=== PATIENT | male | born 1970 | race Caucasian/White ===

== ENCOUNTER 2023-09-25 09:18 | Emergency (ER) | payer OTHER, SELFPAY ==
[2023-09-25 09:24] VITALS: BP 150/99
--- NOTE | 2023-09-25 09:58 | ED.GENMED ---
History of Present Illness
General
Chief Complaint: Abdominal Symptoms
Source: patient
Exam Limitations: none
Time Seen by Provider: 09/25/23 09:50
Travel History
Have you had any contact with someone who has COVID-19?: No
Do you have any symptoms of coronavirus? Fever > 100 degrees, chills, cough, shortness of breath, sore throat, loss of taste or smell, muscle aches, or headache?: No
History of Present Illness
History of Present Illness:
See MDM
Past History
Past History
ED Past Medical History: CAD, HTN, Hypercholesterolemia and GA
ED Past Surgical History: Cardiac (Stents X3) and Other (R ear surgery)
Social History
Tobacco: Non-smoker
Alcohol: Occasional
Drug: None
Personal:
Living: with family
Employment: Employed
Phy Exam
Physical Exam
Physical Exam:
See MDM
Course
Orders/Labs/Results
Orders:
Orders
09/25/23 09:56
Ketorolac [Toradol] 30 mg IV NOW STA
Morphine Sulfate 4 mg IV NOW STA
09/25/23 09:57
CT Abd/pelvis W Iv Cont Urgent
Comment:
Reason For Exam: LLQ pain and fever
09/25/23 10:13
Complete Blood Count/With Diff Urgent
Comprehensive Metabolic Panel Urgent
Urinalysis Reflex To Culture Urgent
Date Specimen was Collected: 09/25/23
Time Specimen was Collected: 10:00
Urine Microscopic Reflex Cult Urgent
09/25/23 12:59
LevoFLOXacin [Levaquin] 500 mg PO NOW STA
MetroNIDAZOLE [Flagyl] 500 mg PO NOW STA
Abnormal Lab Results
09/25/23
10:13
Abs Immat Gran (auto) 0.1 H 10^3/uL
(0-0.05)
Absolute Neuts (auto) 7.7 H 10^3/uL
(1.4-6.5)
Absolute Lymphs (auto) 0.8 L 10^3/uL
(1.2-3.4)
Absolute Monos (auto) 1.0 H 10^3/uL
(0.1-0.6)
Immature Gran % 0.9 H %
(0-0.5)
Neutrophils % 80.4 H %
(42.2-75.2)
Lymphocytes % 7.8 L %
(20.5-51.1)
Monocytes % 10.6 H %
(1.7-9.3)
Urine Ketones Trace A
(Negative)
Ur Occult Blood Reflex Trace A
(Negative)
09/25/23 10:13
09/25/23 10:13
Vital Signs
Initial and Last Documented VS:
Initial Vital Signs
Temp Pulse Resp BP Pulse Ox
99.2 F 110 16 150/99 96
09/25/23 09:24 09/25/23 09:24 09/25/23 09:24 09/25/23 09:24 09/25/23 09:24
Last Documented Vital Signs
Temp Pulse Resp BP Pulse Ox
99.2 F 110 16 150/99 96
09/25/23 09:24 09/25/23 09:24 09/25/23 09:24 09/25/23 09:24 09/25/23 09:24
MDM/Problems Addressed
Differential Diagnosis Includes:
HPI and MDM Narrative:
53-year-old male presenting for evaluation of left lower quadrant pain and fever. Patient states it hurts to defecate. He denies diarrhea. He developed a fever over the past 24 hours which seems to be resolving. He has a history of
diverticulosis but denies diverticulitis
He denies any pain with urination
Given his history and complaint, will obtain CT to look for diverticulitis or any complications of diverticulitis
Physical exam
General: Mildly uncomfortable
HEENT: protecting airway
Neck: appears supple
CV: No evidence of cyanosis
Resp: No accessory muscle use
Abd: Non-distended. Mild left lower quadrant tenderness without rebound
Extremities: No deformities
Neuro: alert
Psych: Normal affect
Skin: Intact
Problems Addressed including Acute and Chronic Conditions affecting care:
1. Abdominal pain with fever
Acuity: acute
Prognosis: stable
Details: Given his history of diverticulosis, will obtain CT looking for evidence of diverticulitis
Updates
CT consistent with mild diverticulitis. 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 He states he had a colonoscopy 5 years ago with no polyps
Differential Diagnosis (but not limited to): Diverticulitis, kidney stone, UTI
Testing considered: Lactic acid but he is afebrile
Drug therapy (if applicable): OTC meds, please see d/c instruction regarding Rx drugs
Amount and/or Complexity of Data Reviewed
Clinical info obtained from: Patient
External data reviewed: N/A
Labs I independently reviewed (but not limited to): White blood cell count normal
Radiology: The CT scan was personally and independently reviewed. In addition, official CT report reviewed.
Pulse Ox: not hypoxic
EKG independently reviewed: N/A
Crystal Mounter: N/A
Critical Care: N/A
Risk of Complication:
Social Determinants of health: Good social support
Discussed with other providers: N/A
Escalation of Care includes Admit/Obs: After being observed in the Emergency Department, pt stable for discharge.
Occasional wrong word or 'sound a like' substitutions may have occurred due to the inherent limitations of voice recognition software. Read the chart carefully and recognize, using context, where substitutions have occurred.
*Critical Care Note
Total Time (30-74mins, 75-104mins- exclusive of procedures): Not Applicable
ED Attending Note
-
Portions of this chart may have been created with voice recognition software.� Occasional wrong word or��sound alike� substitutions may have occurred due to the inherent limitations of voice recognition software.
Discharge Plan
Departure
Patient Disposition: Home (Routine Discharge)
Date of Disposition: 09/25/23
Time of Disposition: 13:00
Patient with high blood pressure during this ER visit?: Yes
Discharge Problem:
Diverticulitis large intestine
Instructions: Diverticulitis (DC), BLOOD PRESSURE
Prescriptions:
New
metronidazole 500 mg Tablet
500 mg PO TID Qty: 21 0RF
diclofenac potassium 50 mg tablet
50 mg PO BID Qty: 20 0RF
levofloxacin 500 mg Tablet
500 mg PO DAILY Qty: 7 0RF
oxycodone 5 mg tablet
5 mg PO Q8H PRN (Reason: Pain) Qty: 14 0RF
No Action
diltiazem HCl [DILT-CD] 180 MG capsule,extended release 24hr
180 mg PO DAILY
aspirin 81 MG tablet,delayed release (DR/EC)
81 mg PO DAILY
rosuvastatin [Crestor] 40 MG tablet
20 mg PO QPM
pantoprazole 40 MG tablet,delayed release (DR/EC)
40 mg PO BID Qty: 180 3RF
famotidine 20 mg Tablet
20 mg PO DAILY
ezetimibe [Zetia] 10 mg Tablet
10 mg PO DAILY
Referrals:
Ryan Hughes CRNP [Family Provider] -
Activity Restrictions/Additional Instructions:
Please return for any worsening symptoms.
You may return at any time if you have further concerns.
Please follow up with your doctor at the first available appointment, preferably this week.
Please make an appointment to follow-up with your resaw carriage operator.
You were given a prescription for narcotics. If you require this pain medicine, please take a daily [id number] stool softener to avoid constipation.
Thank you for choosing [facility].
Interventions
Interventions:
*General Assessment Last Done: 09/25/23 10:15
ED- Fall Risk Assessment Last Done: 09/25/23 11:39
*ED COVID-19 Vaccine History Last Done: 09/25/23 09:36
UG-Hbtjgd-Jeoraktrrw Assessment Last Done: 09/25/23 11:39
[2023-09-25] MEDS: MORPHINE SULFATE 4 MG IV (10:16)
[2023-09-25] MEDS: TORADOL 30 MG IV (10:16)
[2023-09-25 10:27] LABS: % Basophils 0.2 % (0-2); % Eosinophils 0.1 % (0-6); % Immature Granulocytes 0.9 % (0-0.5); % Lymphocytes 7.8 % (20.5-51.1); % Monocytes 10.6 % (1.7-9.3); % Neutrophils 80.4 % (42.2-75.2); Absolute Immature Granulocytes 0.1 10^3/uL (0-0.05); Absolute Lymphocytes 0.8 10^3/uL (1.2-3.4); Absolute Neutrophils 7.7 10^3/uL (1.4-6.5); Hematocrit 41.2 % (39.0-52.0); Hemoglobin 14.9 g/dL (13.0-18.0); Mean Corp Hgb Conc. 36.2 g/dL (33.0-37.0); Mean Corpuscular Hgb 29.3 pg (27.0-31.0); Mean Corpuscular Volume 81.1 fL (80.0-94.0); Mean Platelet Volume 10.2 fL (7.4-10.4); Nucleated Red Blood Cells % 0 % (-); Platelet Count 143 10^3/uL (130-400); Red Blood Cell Count 5.08 10^6/uL (4.70-6.10); Red Cell Dist. Width 12.9 % (11.5-14.5); White Blood Cell Count 9.6 10^3/uL (4.8-10.8)
[2023-09-25 10:30] LABS: Urine Albumin Negative (Neg - Trace); Urine Bilirubin Negative (Negative); Urine Character Clear (Clear); Urine Color Yellow; Urine Glucose Negative (Negative); Urine Ketone Trace (Negative); Urine Leukocyte Negative (Negative); Urine Nitrite Negative (Negative); Urine Occult Blood Trace (Negative); Urine Urobilinogen Negative (Neg - 1+)
[2023-09-25 11:15] LABS: ALT (SGPT) 28 U/L (0-50); AST (SGOT) 28 U/L (17-59); Albumin 4.3 g/dl (3.5-5.0); Alkaline Phosphatase 48 U/L (38-126); Blood Urea Nitrogen 14 mg/dl (9-20); Carbon Dioxide 24 mmol/L (22-30); Chloride 104 mmol/L (98-107); Glucose 93 mg/dl (70-99); Potassium 3.7 mmol/L (3.5-5.1); Sodium 136 mmol/L (135-145); Total Bilirubin 1.2 mg/dl (0.2-1.3); Total Protein 6.6 g/dl (6.3-8.2); eGFR > 60.00
[2023-09-25 11:30] LABS: Urine Amorphous Seen; Urine Mucus Few; Urine Squamous Cell 0-2 /LPF (Few)
[2023-09-25 11:31] LABS: Urine Red Blood Cell 0-2 /HPF (0-2); Urine White Cell 0-2 /HPF (0-5)
[2023-09-25] MEDS: FLAGYL 500 MG PO (13:21)
[2023-09-25] MEDS: LEVAQUIN 500 MG PO (13:21)
[2023-09-25 13:22] VITALS: BP 134/82
== END 2023-09-25 13:35 | disposition home or self-care (01) ==
LOC: EMR 09:18
PROVIDERS: EMERGENCY PHYSICIAN Student in an Organized Health Care Education/Training Program; FAMILY PHYSICIAN Nurse Practitioner Family
DX: K57.32 Diverticulitis of large intestine without perforation or abscess without bleeding (principal); I10 Essential (primary) hypertension
CPT/HCPCS: 99284; 96374; 96375; 74177; 80053; 81003; 81015; 85025; Q9967

== ENCOUNTER → 2024-02-21 11:23 | Outpatient (REF) | payer OTHER, SELFPAY | LOC: HWRAD 11:23 | PROVIDERS: ATTENDING PHYSICIAN Nurse Practitioner Family | DX: M79.671 Pain in right foot (principal) | CPT/HCPCS: 73630 ==

== ENCOUNTER → 2024-02-23 13:21 | Outpatient (REF) | payer OTHER, SELFPAY | LOC: RAD 13:21 | PROVIDERS: ATTENDING PHYSICIAN Nurse Practitioner Family | DX: R60.0 Localized edema (principal); M79.89 Other specified soft tissue disorders | CPT/HCPCS: 93971 ==

== ENCOUNTER 2024-05-27 18:38 | Emergency (ER) | payer OTHER, SELFPAY ==
[2024-05-27 18:40] VITALS: BP 175/105
[2024-05-27 18:57] VITALS: BP 153/119
[2024-05-27 19:00] VITALS: BP 154/112
[2024-05-27 19:05] VITALS: BP 133/90
--- NOTE | 2024-05-27 19:08 | ED.GENMED ---
History of Present Illness
General
Chief Complaint: Cardiac Symptoms
Source: patient
Exam Limitations: none
Time Seen by Provider: 05/27/24 18:56
Nursing documentation reviewed up to this point in time: agreed with
History of Present Illness
History of Present Illness:
54-year-old male with a past medical history of hypertension, hyperlipidemia, CAD status post stent who presents to the emergency room for evaluation of palpitations. Patient reports onset of symptoms about 90 minutes prior to arrival and they have
been constant and are actually improving since then. He reports that he had just finished a rather vigorous workout on a stair climber. When he finished his workout he felt palpitations and heart racing and checked his heart rate and it was
elevated to the 150s. He says that usually when this happens his symptoms will go away when he lays down for a few minutes. He says he laid down for 10 minutes and symptoms did not resolve. He then took a dose of diltiazem 30 mg and after about
15 to 20 minutes he noticed no significant improvement and so he took a second dose of diltiazem 30 mg (total of 60 mg p.o. diltiazem taken between 5:45-6 PM). After another 10 to 15 minutes symptoms did not seem to be improving and so he decided
to come to the emergency room however since arrival symptoms have significantly improved. In triage his heart rate was 150, EKG showed heart rate 133 and on the time of my assessment his heart rate is 100. On my assessment he says he no longer has
any palpitations. He says he did not have and has not had any chest pain. Denies shortness of breath. Denies any dizziness or syncope. He denies any other complaints. He says this has happened to him many times in the past and he was told that
he has sinus tachycardia and was prescribed diltiazem to take as needed during the episodes. He follows with Dr. Chino for cardiology.
Past History
Past History
ED Past Medical History: CAD, HTN, Hypercholesterolemia and [place]
ED Past Surgical History: Cardiac (Stents X3) and Other (R ear surgery)
Social History
Tobacco: Non-smoker
Alcohol: Occasional
Drug: None
Personal:
Living: with family
Employment: Employed
Review of Systems
Review of Systems
All Other Systems: ROS reviewed and negative except as documented in HPI and ROS
Respiratory: Denies trouble breathing
Cardiac: Reports palpitations; Denies chest pain, diaphoresis or syncope
ABD/GI: Denies abdominal pain
: Denies flank pain
Musculoskeletal: Denies neck pain or back pain
Neurological: Denies dizzy or headache
Phy Exam
Physical Exam
Physical Exam:
General: Awake, alert, oriented x3; no acute distress
Head: Normocephalic, atraumatic
Eyes: Conjunctiva normal
Throat: Airway intact, handling secretions
Neck: Trachea midline, no JVD
Lungs: Clear to auscultation bilaterally, no wheezing, rales, rhonchi
Heart: Tachycardia with regular rhythm, no murmurs, gallops, or rubs
Abd: Soft, non distended, nontender
Neuro: No gross deficit
Skin: no rash
Extremities: No edema in extremities, equal pulses in all extremities
Scores
Heart Failure Risk
Heart Failure Risk Score: Not Applicable
Heart Score for Chest Pain Patients
STEMI patient?: Not applicable
Withdrawal Assessment of Alcohol
Withdrawal Assessment Completed?: Not applicable
Course
Orders/Labs/Results
Orders:
Orders
05/27/24 18:40
Electrocardiogram (*1) Urgent
Reason for Study: Chest Pain
EKG- Treatment ONCE
05/27/24 18:42
Electrocardiogram (*1) Urgent
Reason for Study: Palpitations
EKG- Treatment ONCE
05/27/24 19:10
Encourage PO Hydration-Treatme ONCE
05/27/24 19:11
0.9% Sodium Chloride 1000 ml [Nss] 1,000 ml IV BOLUS
05/27/24 19:30
CPK [Creatine Phosphokinase] Urgent
Complete Blood Count/With Diff Urgent
Comprehensive Metabolic Panel Urgent
Magnesium Urgent
Troponin I Urgent
05/27/24 21:31
Troponin I Urgent
Abnormal Lab Results
05/27/24 05/27/24
19:30 21:31
MCV 79.4 L fL
(80.0-94.0)
Abs Immat Gran (auto) 0.1 H 10^3/uL
(0-0.05)
Absolute Monos (auto) 0.7 H 10^3/uL
(0.1-0.6)
Immature Gran % 0.7 H %
(0-0.5)
Lymphocytes % 15.5 L %
(20.5-51.1)
Carbon Dioxide 21 L mmol/L
(22-30)
Glucose 114 H mg/dl
(70-99)
Creatine Kinase 303 H U/L
(55-170)
Troponin I 0.048 H* D ng/ml
05/27/24 19:30
05/27/24 19:30
Vital Signs
Pulse: 88
Initial and Last Documented VS:
Initial Vital Signs
Temp Pulse Resp BP Pulse Ox
36.5 C 156 16 175/105 99
05/27/24 18:40 05/27/24 18:40 05/27/24 18:40 05/27/24 18:40 05/27/24 18:40
Last Documented Vital Signs
Temp Pulse Resp BP Pulse Ox
36.5 C 88 15 132/90 96
05/27/24 18:40 05/27/24 22:08 05/27/24 21:30 05/27/24 21:00 05/27/24 21:30
MDM/Problems Addressed
Differential Diagnosis Includes:
SVT, atrial fibs/flutter, sinus tachycardia, atrial tachycardia
MDM/Problems Addressed:
54-year-old male presents for evaluation of palpitations and elevated heart rate onset after vigorous workout; has had similar symptoms many times in the past. Took 60 mg of p.o. diltiazem prior to arrival and symptoms now improving. Triage vitals
significant for hypertension and tachycardia�these have essentially normalized by my assessment, heart rate 100 on my assessment. His triage EKG shows narrow complex tachycardia which is regular, suspect likely sinus tachycardia; repeat EKG at
lower rate confirms sinus tach. Will check labs including a CBC and a CMP, magnesium level, CPK and troponin. Provide fluids. Monitor on telemetry reassess after the above.
Labs reviewed and unremarkable�marginal CPK elevation in the setting of recent workout. Patient's heart rate is in the 80s, asymptomatic. Continue to monitor.
Repeat troponin marginally uptrending likely related to marked tachycardia also slight CPK elevation. Denies chest pain at any point in time. Had essentially clean cath a year ago. Do not suspect ACS. I had a long discussion with the patient. I
explained that he should have a repeat troponin after 3 hours to ensure that it peaks. He is adamant that he does not wish to stay for third troponin. He has been here for 4 hours and has been essentially asymptomatic for the entirety. He never
had any chest pain. Will discharge in keeping with his wishes but I did urge him to return immediately if he feels any symptoms such as palpitations, shortness of breath, chest pain, dizziness. He assured me that he would.
Acute Exacerbation and/or Progression of Chronic Illness:
Acutely hypertensive improved without intervention continue to monitor but no emergent antihypertensive indicated at present
Acute Exacerbation and/or Progression of Chronic Illness: HTN
*Pulse Oximetry
Patient hypoxic: no
*EKG
Interpreted by ED Provider?: Yes
Heart Rate: 133
Rate: tachycardiac
Rhythm: sinus
Apex: normal axis
Interval: normal interval
QRS Pattern: normal QRS
Ischemia: no ischemia
*Critical Care Note
Total Time (30-74mins, 75-104mins- exclusive of procedures): Not Applicable
Data Reviewed
Review of Other/Old Records Reveals: Labs, Records and Testing
Source: patient and records
ED Attending Note
-
Portions of this chart may have been created with voice recognition software.� Occasional wrong word or��sound alike� substitutions may have occurred due to the inherent limitations of voice recognition software.
Discharge Plan
Departure
Patient Disposition: Home (Routine Discharge)
Date of Disposition: 05/27/24
Time of Disposition: 22:36
Patient with high blood pressure during this ER visit?: Yes
Discharge Problem:
Tachycardia
Instructions: Tachycardia
Prescriptions:
No Action
diltiazem HCl [DILT-CD] 180 MG capsule,extended release 24hr
180 mg PO DAILY
aspirin 81 MG tablet,delayed release (DR/EC)
81 mg PO DAILY
rosuvastatin [Crestor] 40 MG tablet
20 mg PO QPM
pantoprazole 40 MG tablet,delayed release (DR/EC)
40 mg PO BID Qty: 180 3RF
famotidine 20 mg Tablet
20 mg PO DAILY
ezetimibe [Zetia] 10 mg Tablet
10 mg PO DAILY
metronidazole 500 mg Tablet
500 mg PO TID Qty: 21 0RF
diclofenac potassium 50 mg tablet
50 mg PO BID Qty: 20 0RF
levofloxacin 500 mg Tablet
500 mg PO DAILY Qty: 7 0RF
oxycodone 5 mg tablet
5 mg PO Q8H PRN (Reason: Pain) Qty: 14 0RF
Referrals:
Rosas Chino MD [Active] - Call in 1-3 days for appt
Ryan Hughes CRNP [Family Provider] -
Activity Restrictions/Additional Instructions:
Thank you for visiting the Emergency Department at [facility].
1. Please schedule a follow up appointment as directed. Call first thing tomorrow morning to make an appointment.
2. If indicated, please take your medications as instructed and indicated on discharge paperwork.
3. If any of your symptoms do not improve, or persist, or become more severe within 6-12 hours, please return to the emergency department for further care.
4. Please return to the emergency department if you develop a headache, neck pain/stiffness, fever greater than 100.4F, chest pain, shortness of breath, persistent nausea, vomiting, slurred speech, difficulty walking, numbness/tingling, weakness,
signs of infection or any other symptoms that are worrisome to you.
Please call [phone] if you have any questions.
Interventions
Interventions:
*Risk Screen - Suicide Last Done: 05/27/24 18:42
*Neglect/Abuse Screening Last Done: 05/27/24 18:42
ED- Fall Risk Assessment Last Done: 05/27/24 20:08
*ED COVID-19 Vaccine History Last Done: 05/27/24 18:42
ED- Pulmonary Assessment Last Done: 05/27/24 20:08
ED- Cardiac Assessment Last Done: 05/27/24 20:08
Discharge Date and Time
Print Language: NEPALI
[2024-05-27] MEDS: NSS 1000 IV (19:30)
[2024-05-27 19:41] LABS: % Basophils 0.5 % (0-2); % Eosinophils 2.1 % (0-6); % Immature Granulocytes 0.7 % (0-0.5); % Lymphocytes 15.5 % (20.5-51.1); % Monocytes 7.8 % (1.7-9.3); % Neutrophils 73.4 % (42.2-75.2); Absolute Eosinophils 0.2 10^3/uL (0-0.7); Absolute Immature Granulocytes 0.1 10^3/uL (0-0.05); Absolute Lymphocytes 1.3 10^3/uL (1.2-3.4); Absolute Monocytes 0.7 10^3/uL (0.1-0.6); Absolute Neutrophils 6.2 10^3/uL (1.4-6.5); Hematocrit 42.7 % (39.0-52.0); Hemoglobin 15.5 g/dL (13.0-18.0); Mean Corp Hgb Conc. 36.3 g/dL (33.0-37.0); Mean Corpuscular Hgb 28.8 pg (27.0-31.0); Mean Corpuscular Volume 79.4 fL (80.0-94.0); Mean Platelet Volume 9.6 fL (7.4-10.4); Nucleated Red Blood Cells % 0 % (-); Platelet Count 173 10^3/uL (130-400); Red Blood Cell Count 5.38 10^6/uL (4.70-6.10); White Blood Cell Count 8.5 10^3/uL (4.8-10.8)
[2024-05-27 19:58] LABS: ALT (SGPT) 34 U/L (0-50); AST (SGOT) 34 U/L (17-59); Albumin 4.9 g/dl (3.5-5.0); Alkaline Phosphatase 75 U/L (38-126); Blood Urea Nitrogen 13 mg/dl (9-20); Carbon Dioxide 21 mmol/L (22-30); Chloride 105 mmol/L (98-107); Glucose 114 mg/dl (70-99); Magnesium 1.9 mg/dl (1.6-2.3); Sodium 145 mmol/L (135-145); Total Bilirubin 0.3 mg/dl (0.2-1.3); Total Protein 7.3 g/dl (6.3-8.2); eGFR > 60.00
[2024-05-27 19:59] LABS: Creatine Phosphokinase 303 U/L (55-170)
[2024-05-27 20:00] VITALS: BP 133/83
[2024-05-27 20:07] LABS: Troponin I 0.024 ng/ml
[2024-05-27 21:00] VITALS: BP 132/90
--- NOTE | 2024-05-27 21:00 | EDRN ---
Updated patient on plan for repeat troponin level at 2130, provided with a lunchbox as well
[2024-05-27 22:09] LABS: Troponin I 0.048 ng/ml
--- NOTE | 2024-05-27 22:33 | EDRN ---
Dr. Montoya at bedside going over results and plan
== END 2024-05-27 22:43 | disposition home or self-care (01) ==
LOC: EMR 18:38
PROVIDERS: EMERGENCY PHYSICIAN Emergency Medicine; FAMILY PHYSICIAN Nurse Practitioner Family
DX: I47.10 Supraventricular tachycardia, unspecified (principal); I10 Essential (primary) hypertension; E78.00 Pure hypercholesterolemia, unspecified; I25.10 Atherosclerotic heart disease of native coronary artery without angina pectoris; Z95.5 Presence of coronary angioplasty implant and graft
CPT/HCPCS: 96360; 99284; 80053; 82550; 83735; 84484; 85025; 93005

== ENCOUNTER → 2024-06-27 11:20 | Outpatient (REF) | payer OTHER, SELFPAY | LOC: HWRCS 11:20 | PROVIDERS: ATTENDING PHYSICIAN Internal Medicine Interventional Cardiology; FAMILY PHYSICIAN Nurse Practitioner Family | DX: I10 Essential (primary) hypertension (principal); Z95.5 Presence of coronary angioplasty implant and graft; R00.2 Palpitations; I25.10 Atherosclerotic heart disease of native coronary artery without angina pectoris | CPT/HCPCS: 93306 ==

== ENCOUNTER → 2025-02-24 19:22 | Outpatient (REF) | payer OTHER, SELFPAY | LOC: MRI 19:22 | PROVIDERS: ATTENDING PHYSICIAN Podiatrist Foot & Ankle Surgery; FAMILY PHYSICIAN Nurse Practitioner Family | DX: M77.41 Metatarsalgia, right foot (principal); M71.571 Other bursitis, not elsewhere classified, right ankle and foot | CPT/HCPCS: 73720; A9575 ==

== ENCOUNTER 2025-05-01 03:52 | Emergency (ER) | payer OTHER, SELFPAY ==
[2025-05-01 03:57] VITALS: BP 164/84
[2025-05-01 04:04] VITALS: BMI 32.9
[2025-05-01 04:18] LABS: Hematocrit 45.7 % (39.0-52.0); Hemoglobin 15.8 g/dL (13.0-18.0); Mean Corp Hgb Conc. 34.6 g/dL (33.0-37.0); Mean Corpuscular Volume 83.7 fL (80.0-94.0); Nucleated Red Blood Cells % 0 % (-); Platelet Count 177 10^3/uL (130-400); Red Cell Dist. Width 12.8 % (11.5-14.5)
[2025-05-01 04:47] LABS: Blood Urea Nitrogen 15 mg/dl (9-20); Calcium 9.5 mg/dl (8.4-10.2); Carbon Dioxide 25 mmol/L (22-30); Chloride 106 mmol/L (98-107); Estimated Creatinine Clearance 97 ml/min; Glucose 112 mg/dl (70-99); Sodium 142 mmol/L (135-145); eGFR > 60.00
[2025-05-01 04:53] LABS: Troponin I < 0.012 ng/ml
[2025-05-01] MEDS: MAALOX 50 PO (05:32)
[2025-05-01] MEDS: CARAFATE SUSPENSION 1 GM PO (05:57)
[2025-05-01 06:00] VITALS: BP 133/85
--- NOTE | 2025-05-01 06:23 | ED.GENMED ---
History of Present Illness
General
Chief Complaint: Chest Pain
Source: patient, spouse and previous hospital records (Hospitalization February 2023 for evaluation of exertional chest pain. Cardiac catheterization at that time showed patent stents. No stenosis. Recommend medical management.)
Exam Limitations: none
Time Seen by Provider: 05/01/25 05:04
Nursing documentation reviewed up to this point in time: agreed with
History of Present Illness
History of Present Illness:
This is a 55-year-old gentleman with significant history of CAD including CA in 2006 and subsequent stenting procedures. He presents with chest pain and severe acid reflux. He reports waking up with a sensation of acid rising up to the back of his
throat and nose causing intense burning and coughing which he describes as a 'bullet shot right up, right up almost into my nose' he took multiple antacids to alleviate the symptoms. Mild improvement in chest burning after an acids. This episode
was characterized by a burning sensation in the chest and throat. The patient has a long history of acid reflux and takes 40 mg of Protonix twice daily along with 40 mg of Pepcid at nighttime.
He recently began Zepbound, initial dose 4 days ago which he suspects aggravated his acid reflux noting 'my stomach felt horrible, acid reflux I had 2 nights in a row horribly'
Patient states he generally sleeps Semi-Marquez's, he has an adjustable bed and admits that elevating the head of his bed generally improves his GERD symptoms. As his acid reflux seemed to improve the previous night, patient decided to lower the
head of his bed tonight which she also suspects aggravated his acid reflux.
Current chest pain feels quite different from previous episodes of angina.
Moderate coughing initially and intermittent coughing persist but no choking or gagging, no shortness of breath.
Past History
Past History
ED Past Medical History: CAD, GERD, HTN, Hypercholesterolemia and CA
ED Past Surgical History: Cardiac (Stents X3) and Other (R ear surgery)
Social History
Tobacco: Non-smoker
Alcohol: Occasional
Drug: None
Personal:
Living: with family
Employment: Employed
Family History
Family History: Other (Noncontributory)
Phy Exam
Physical Exam
Physical Exam:
GENERAL: 55-year-old gentleman appears his stated age, awake and alert, pleasant, appears in no acute distress. is accompanying.
EYE: anicteric
NECK: Supple, nontender, no meningismus, no significant adenopathy.
ENT: posterior pharynx is clear, oral mucosa is moist. No rhinorrhea.
CARDIAC: Regular rate and rhythm. no murmur.
LUNGS: Clear breath sounds bilaterally, no acute respiratory distress, no wheezes/rales/rhonchi
ABDOMEN: Soft, nondistended, without focal tenderness, no r/g, no cvat. normoactive BS.
NEUROLOGICAL: Alert and oriented x3, no focal neuro deficits.
SKIN: Warm and dry, normal color, skin intact. No rash.
MUSCULOSKELETAL: No C/C/E. peripheral pulses are full and equal b/l. No palpable tenderness.
PSYCH: Normal and appropriate interaction.
Scores
Heart Score for Chest Pain Patients
STEMI patient?: No
History: Slightly or Non-Suspicious
ECG: Normal
Age: >45 - <65 years
Risk Factors: >/= 3 Risk Factors or History of CAD
Troponin: </= Normal Limit
Heart Score for Chest Pain Patients: 3
Heart Score Risk: 2.5% MACE over next 6 weeks
Course
Orders/Labs/Results
Orders:
Orders
05/01/25 03:55
Electrocardiogram (*1) Urgent
Reason for Study: Chest Pain
Chest [CR Chest - 2 Views ] Urgent
Comment:
Reason For Exam: chest pain
05/01/25 03:56
EKG- Treatment ONCE
05/01/25 04:03
Basic Metabolic Panel Urgent
Comment: NO K
Complete Blood Count/With Diff Urgent
Troponin I Urgent
05/01/25 05:22
Mag Hydrox/Al Hydrox/Simeth [Maalox] 30 ml Phenobarb/Hyoscy/Atropine/Scop [] 10 ml Viscous Lidocaine 2% [Xylocaine Viscous Cup] 10 ml PO NOW
05/01/25 05:23
EKG- Treatment ONCE
05/01/25 05:29
Mag Hydrox/Al Hydrox/Simeth [Maalox] 30 ml .ROUTE .STK-MED ONE
Phenobarb/Hyoscy/Atropine/Scop [] 10 ml .ROUTE .STK-MED ONE
Viscous Lidocaine 2% [Xylocaine Viscous Cup] 15 ml .ROUTE .STK-MED ONE
05/01/25 05:49
Troponin I Urgent
05/01/25 05:50
Sucralfate Suspension [Carafate Suspension] 1 gm PO NOW STA
05/01/25 06:00
Electrocardiogram (*1) Urgent
Reason for Study: Chest Pain
Abnormal Lab Results
05/01/25
04:03
Absolute Monos (auto) 0.8 H 10^3/uL
(0.1-0.6)
Monocytes % 10.3 H %
(1.7-9.3)
Glucose 112 H mg/dl
(70-99)
05/01/25 04:03
05/01/25 04:03
Vital Signs
Initial and Last Documented VS:
Initial Vital Signs
Pulse Resp BP Pulse Ox
90 24 164/84 93
05/01/25 03:57 05/01/25 03:57 05/01/25 03:57 05/01/25 03:57
Last Documented Vital Signs
Pulse Resp BP Pulse Ox
88 16 164/84 93
05/01/25 05:30 05/01/25 05:30 05/01/25 03:57 10/09/25 06:35
MDM/Problems Addressed
Differential Diagnosis Includes:
Differential diagnosis includes, in no particular order and is not limited to:
GERD
Esophagitis
Peptic ulcer disease
Gastric ulcer
Bile reflux
CAD related chest pain
Medication induced gastritis
Hiatal hernia
Aspiration
MDM/Problems Addressed:
Acute chest pain after episode of GERD
Acute cough
Thus far EKG is unremarkable and unchanged from previous.
Labs are unremarkable including negative troponin.
Chest x-ray shows clear lung steen, normal heart size. Normal mediastinum.
I do suspect patient suffered acute esophagitis related to acute episode of GERD which could certainly be aggravated by recent initiation of Zepbound along with supine positioning while sleeping.
Patient has had no respiratory distress, lungs are clear to auscultation and chest x-ray within normal limits. Nothing to suggest significant aspiration episode.
Will plan to repeat troponin and EKG.
Will trial a GI cocktail followed by Carafate.
If troponin remains negative and patient feeling improved with GI medications we will plan to discharge to home with recommendations to discontinue Zepbound.
Also recommend he resume Semi-Marquez's positioning at bedtime.
Continue current antireflux medications.
Prompt follow-up with PCP as well as associate director data & analytics.
Chronic conditions affecting care: HTN, CAD and Other (GERD)
Acute Exacerbation and/or Progression of Chronic Illness:
GERD
*Radiology
Radiology exam reviewed: preliminary read by ED provider (Chest x-ray is unremarkable. Clear lung steen. Normal heart size.)
*Pulse Oximetry
SaO2: 93
Oxygen Mode of Delivery: Room air
Patient hypoxic: no
*EKG
Interpreted by ED Provider?: Yes
Interpretation: normal
Comparison EKG: no changes
Rate: normal
Rhythm: sinus
[place]: normal axis
Interval: normal interval
QRS Pattern: normal QRS
Ischemia: no ischemia
*Occupational Therapy Aide Interpretation
Rate: normal
Interpretation: normal
Rhythm: sinus
*Critical Care Note
Total Time (30-74mins, 75-104mins- exclusive of procedures): Not Applicable
Update Note
Update Note:
06:50
Repeat troponin remains flat. EKG is unchanged.
Patient reports relief of chest discomfort/burning after GI cocktail and Carafate. He is requesting a prescription for Carafate which he has had in the past for his acid reflux exacerbations.
Recommend he continue his twice daily Protonix and Pepcid. Hold off on any further doses of Zepbound.
Elevate head of bed when sleeping.
Prompt follow-up with associate director data & analytics for recheck.
ED Attending Note
-
Portions of this chart may have been created with voice recognition software.� Occasional wrong word or��sound alike� substitutions may have occurred due to the inherent limitations of voice recognition software.
Discharge Plan
Departure
Patient Disposition: Home (Routine Discharge)
Date of Disposition: 05/01/25
Time of Disposition: 06:49
Patient with high blood pressure during this ER visit?: No
Condition: Good
Discharge Problem:
Acute GERD with esophagitis
Instructions: Acid Reflux and GERD in Adults (DC)
Prescriptions:
New
sucralfate [Carafate] 100 mg/mL suspension
10 ml PO QID PRN (Reason: acid reflux) Qty: 400 1RF
No Action
diltiazem HCl [DILT-CD] 180 MG capsule,extended release 24hr
180 mg PO DAILY
aspirin 81 MG tablet,delayed release (DR/EC)
81 mg PO DAILY
rosuvastatin [Crestor] 40 MG tablet
20 mg PO QPM
pantoprazole 40 MG tablet,delayed release (DR/EC)
40 mg PO BID Qty: 180 3RF
famotidine 20 mg Tablet
20 mg PO DAILY
ezetimibe [Zetia] 10 mg Tablet
10 mg PO DAILY
metronidazole 500 mg Tablet
500 mg PO TID Qty: 21 0RF
diclofenac potassium 50 mg tablet
50 mg PO BID Qty: 20 0RF
levofloxacin 500 mg Tablet
500 mg PO DAILY Qty: 7 0RF
oxycodone 5 mg tablet
5 mg PO Q8H PRN (Reason: Pain) Qty: 14 0RF
Referrals:
Ryan Hughes CRNP [Family Provider, Family Practice] - Call in 1-3 days for appt
Interventions
Interventions:
*Risk Screen - Suicide Last Done: 05/01/25 03:57
*General Assessment Last Done: 05/01/25 04:05
*Neglect/Abuse Screening Last Done: 05/01/25 03:57
*ED- Fall Risk Assessment Last Done: 05/01/25 04:05
*ED COVID-19 Vaccine History Last Done: 05/01/25 04:05
*ED Influenza Vaccine History Last Done: 05/01/25 04:05
ED- Cardiac Assessment Last Done: 05/01/25 04:00
Discharge Date and Time
Print Language: [place]ET[place]ESE
[2025-05-01 06:38] LABS: Troponin I < 0.012 ng/ml
[2025-05-01 07:00] VITALS: BP 136/95
== END 2025-05-01 07:07 | disposition home or self-care (01) ==
LOC: EMR 03:52
PROVIDERS: EMERGENCY PHYSICIAN Emergency Medicine; FAMILY PHYSICIAN Nurse Practitioner Family
DX: K21.00 Gastro-esophageal reflux disease with esophagitis, without bleeding (principal); I25.10 Atherosclerotic heart disease of native coronary artery without angina pectoris; E78.00 Pure hypercholesterolemia, unspecified; I10 Essential (primary) hypertension; I25.2 Old myocardial infarction; Z95.5 Presence of coronary angioplasty implant and graft
CPT/HCPCS: 99285; 71046; 80048; 84484; 85025; 93005

== ENCOUNTER 2025-06-06 07:55 | Emergency (ER) | payer OTHER, SELFPAY ==
[2025-06-06 08:00] VITALS: BP 141/102
[2025-06-06 08:04] VITALS: BP 148/102
[2025-06-06 08:29] VITALS: BP 126/90
--- NOTE | 2025-06-06 08:42 | ED.GENMED ---
Addendum entered and electronically signed by Adriana Combs PA-C 06/09/25 11:35:
Throat culture positive for group A strep. Patient called and notified of results. Patient already spoke with PCP regarding this and was started on amoxicillin.
Original Note:
History of Present Illness
General
Chief Complaint: Cold/Flu/URI Symptoms
Source: patient and spouse
Exam Limitations: none
Time Seen by Provider: 06/06/25 08:27
Nursing documentation reviewed up to this point in time: agreed with
History of Present Illness
History of Present Illness:
The patient is a 55-year-old man with a past medical history of coronary artery disease who reports palpitations and a feeling as though his heart is racing for the last 2-1/2 hours. Patient denies chest pain and shortness of breath. Patient
reports that for 3 days now he has had a bad cold. He reports nasal congestion, severe sore throat, swollen glands at the neck, and decreased appetite. Patient reports he feels very dehydrated. He denies leg pain and leg swelling. He denies a
history of PE and DVT. He denies recent hospitalization or long travel history. Patient reports that he feels like the mucus is in his throat and has not settled into his lungs. He reports a mild cough but not severe. Patient reports that he
took his typical dose of 180 mg of diltiazem this morning as he normally would.
Past History
Past History
ED Past Medical History: CAD, GERD, HTN, Hypercholesterolemia and [place]
ED Past Surgical History: Cardiac (Stents X3) and Other (R ear surgery)
Social History
Tobacco: Non-smoker
Alcohol: Occasional
Drug: None
Personal:
Living: with family
Employment: Employed
Family History
Family History: Other (Noncontributory)
Review of Systems
Review of Systems
Allergies reviewed?: Yes
All Other Systems: ROS reviewed and negative except as documented in HPI and ROS
Constitutional: Reports fatigue and chills
EENT: Reports sore throat and runny nose
Respiratory: Reports cough
Cardiac: Reports palpitations
ABD/GI: Reports anorexia
: Reports no symptoms
Musculoskeletal: Reports no symptoms
Skin: Reports no symptoms
Neurological: Reports no symptoms
Endocrine: Reports no symptoms
Hematologic/Lymphatic: Reports no symptoms
Psychiatric: Reports no symptoms
Phy Exam
Physical Exam
Physical Exam:
Physical Exam
General: no apparent distress, not acutely ill
Neck: supple. Mild cervical lymphadenopathy. Pharynx appears erythematous but no signs of exudate
Heart: Tachycardic
Lungs: no acute respiratory distress. clear bilaterally
Abdomen: normal bowel sounds. not tender. no CVAT
Neuro: alert and oriented. no focal neurological deficits
Skin: no rash
Psychiatric: well kept. interactive and cooperative
Extremities: no edema. no calf tenderness. negative homans. good distal pulses
Course
Orders/Labs/Results
Orders:
Orders
06/06/25 08:05
Electrocardiogram (*1) Urgent
Reason for Study: Tachycardia
EKG- Treatment ONCE
CXR2 [CR Chest - 2 Views ] Urgent
Comment:
Reason For Exam: shortness of breath
06/06/25 08:40
0.9% Sodium Chloride 1000 ml [Nss] 1,000 ml IV BOLUS
06/06/25 08:41
Ketorolac [Toradol] 30 mg IV NOW STA
06/06/25 08:43
COVID-19 Antigen Urgent
Source: Nasal Swab
Complete Blood Count/With Diff Urgent
Comprehensive Metabolic Panel Urgent
Magnesium Urgent
Monotest Routine
Influenza A+B Rapid Molecular Urgent
JULIAN Source: Nasal Swab
Specimen Description:
Date Specimen was Collected: 06/06/25
Time Specimen was Collected: 08:40
Rapid Strep Group A Urgent
JULIAN Source: Throat/Pharynx
Specimen Description:
Date Specimen was Collected: 06/06/25
Time Specimen was Collected: 08:40
06/06/25 09:12
Add On- LAB Urgent
Tests Added?: monotest
Abnormal Lab Results
06/06/25
08:43
WBC 16.1 H 10^3/uL
(4.8-10.8)
Abs Immat Gran (auto) 0.1 H 10^3/uL
(0-0.05)
Absolute Neuts (auto) 13.6 H 10^3/uL
(1.4-6.5)
Absolute Lymphs (auto) 0.9 L 10^3/uL
(1.2-3.4)
Absolute Monos (auto) 1.4 H 10^3/uL
(0.1-0.6)
Neutrophils % 84.3 H %
(42.2-75.2)
Lymphocytes % 5.5 L %
(20.5-51.1)
BUN 8 L mg/dl
(9-20)
Glucose 128 H mg/dl
(70-99)
06/06/25 08:43
06/06/25 08:43
Vital Signs
Initial and Last Documented VS:
Initial Vital Signs
Temp Pulse Resp BP Pulse Ox
98.7 F 150 20 141/102 97
06/06/25 08:00 06/06/25 08:00 06/06/25 08:00 06/06/25 08:00 06/06/25 08:00
Last Documented Vital Signs
Temp Pulse Resp BP Pulse Ox
98.7 F 105 17 142/99 95
06/06/25 09:00 06/06/25 09:39 06/06/25 09:30 06/06/25 09:00 06/06/25 09:30
MDM/Problems Addressed
Differential Diagnosis Includes:
Sinus tachycardia related to dehydration, sinus tachycardia related to COVID, hyponatremia
MDM/Problems Addressed:
Patient presents with acute upper respiratory symptoms and palpitations
Chronic conditions affecting care: CAD
Acute Exacerbation and/or Progression of Chronic Illness:
Patient has no chest pain or shortness of breath to suggest acute exacerbation of coronary artery disease. EKG shows no obvious ischemia or ST changes
*Radiology
Radiology exam reviewed: preliminary read by ED provider (Chest x-ray read by me. No pulmonary edema or infiltrate) and radiology read reviewed
*Pulse Oximetry
SaO2: 97
Oxygen Mode of Delivery: Room air
Patient hypoxic: no
*EKG
Interpreted by ED Provider?: Yes
Interpretation: abnormal
Comparison EKG: changes noted (Now tachycardic)
Rate: tachycardiac
Rhythm: sinus
[place]: normal axis
Interval: normal interval
QRS Pattern: normal QRS
Ischemia: no ischemia
*Teletype Or [place] Keyboard Operator Interpretation
Rate: tachycardiac
Interpretation: abnormal
Rhythm: sinus
*Critical Care Note
Total Time (30-74mins, 75-104mins- exclusive of procedures): Not Applicable
Data Reviewed
Review of Other/Old Records Reveals: Testing (Cardiac cath result reviewed from 2022 which showed mild progression of atherosclerosis of coronary arteries)
Source: patient and spouse
Patient Management
Social determinants of health affecting care: Living situation and Strong social support
Escalation/DeEscalation of care consider admission/obs:
11:00am Patient's heart rate has been in the 90s with IV fluids. Patient reports he feels much better. Given that patient has had no chest pain or shortness of breath it is unlikely he has a PE. Patient likely has a viral syndrome and tells me
that multiple family members have had very similar symptoms that have taken weeks to feel better from. Patient advised to follow-up with his doctor within 1 week and to refrain from any exercise for at least 1 week or until feeling better. I
suspect patient's heart rate is related to his viral illness and dehydration
ED Attending Note
-
Portions of this chart may have been created with voice recognition software.� Occasional wrong word or��sound alike� substitutions may have occurred due to the inherent limitations of voice recognition software.
Discharge Plan
Departure
Patient Disposition: Home (Routine Discharge)
Date of Disposition: 06/06/25
Time of Disposition: 11:12
Patient with high blood pressure during this ER visit?: Yes
Condition: Good
Covid-19: Not Applicable
Discharge Problem:
Sinus tachycardia, Viral illness, Acute dehydration, Dehydration
Instructions: Tachycardia, BLOOD PRESSURE
Prescriptions:
No Action
diltiazem HCl [DILT-CD] 180 MG capsule,extended release 24hr
180 mg PO DAILY
aspirin 81 MG tablet,delayed release (DR/EC)
81 mg PO DAILY
rosuvastatin [Crestor] 40 MG tablet
20 mg PO QPM
pantoprazole 40 MG tablet,delayed release (DR/EC)
40 mg PO BID Qty: 180 3RF
Referrals:
Ryan Hughes CRNP [Family Provider, Family Practice]
Activity Restrictions/Additional Instructions:
It is important that you return with any chest pain or shortness of breath. Please keep yourself well-hydrated with fluids. Take 600 mg of ibuprofen/Advil every 6-8 hours with food for pain. If your heart rate elevates, drink fluids and elevate
your legs and feet. Please refrain from any exercise or heavy exertion for at least 1 week
Please follow-up with your primary care doctor within 1 week
Interventions
Interventions:
*Risk Screen - Suicide Last Done: 06/06/25 08:00
*General Assessment Last Done: 06/06/25 08:02
*Neglect/Abuse Screening Last Done: 06/06/25 09:00
*ED- Fall Risk Assessment Last Done: 06/06/25 08:12
*ED COVID-19 Vaccine History Last Done: 06/06/25 08:02
*ED Influenza Vaccine History Last Done: 06/06/25 08:02
ED- Pulmonary Assessment Last Done: 06/06/25 09:00
Discharge Date and Time
Print Language: KHMER
[2025-06-06 08:49] VITALS: BMI 32.5
[2025-06-06] MEDS: TORADOL 30 MG IV (08:50)
[2025-06-06] MEDS: NSS 1000 IV (08:53)
[2025-06-06 08:55] LABS: Hematocrit 42.8 % (39.0-52.0); Hemoglobin 15.2 g/dL (13.0-18.0); Mean Corp Hgb Conc. 35.5 g/dL (33.0-37.0); Mean Corpuscular Volume 81.1 fL (80.0-94.0); Nucleated Red Blood Cells % 0 % (-); Platelet Count 171 10^3/uL (130-400); Red Cell Dist. Width 12.8 % (11.5-14.5)
[2025-06-06 09:00] VITALS: BP 142/99
[2025-06-06 09:14] LABS: COVID-19 Antigen Negative (Negative)
[2025-06-06 09:17] LABS: ALT (SGPT) 31 U/L (0-50); AST (SGOT) 27 U/L (17-59); Albumin 4.4 g/dl (3.5-5.0); Alkaline Phosphatase 54 U/L (38-126); Blood Urea Nitrogen 8 mg/dl (9-20); Calcium 9.1 mg/dl (8.4-10.2); Carbon Dioxide 22 mmol/L (22-30); Chloride 106 mmol/L (98-107); Estimated Creatinine Clearance 120 ml/min; Glucose 128 mg/dl (70-99); Magnesium 2.0 mg/dl (1.6-2.3); Potassium 3.9 mmol/L (3.5-5.1); Sodium 138 mmol/L (135-145); Total Protein 7.3 g/dl (6.3-8.2); eGFR > 60.00
== END 2025-06-06 11:35 | disposition home or self-care (01) ==
LOC: EMR 07:55
PROVIDERS: EMERGENCY PHYSICIAN Emergency Medicine; FAMILY PHYSICIAN Nurse Practitioner Family
DX: R00.0 Tachycardia, unspecified (principal); B34.9 Viral infection, unspecified; E86.0 Dehydration; I25.10 Atherosclerotic heart disease of native coronary artery without angina pectoris; E78.00 Pure hypercholesterolemia, unspecified; I10 Essential (primary) hypertension; I25.2 Old myocardial infarction; Z95.5 Presence of coronary angioplasty implant and graft
CPT/HCPCS: 99283; 96374; 96361; 71046; 80053; 83735; 85025; 86308; 87070; 87147; 87502; 87811; 87880; 93005